=== PATIENT | female | born 1970 | race Caucasian/White ===

== ENCOUNTER 2017-01-22 19:35 | Emergency (ER) | payer OTHER ==
[~2017-01-22] VITALS: Ht 160 cm; Wt 117.9 kg
[~2017-01-22 19:35] MED LIST: CIPR500T4 PO; HYDR-3498 PO; HYDR-902 PO; IBUP-1542 PO; IBUP800T25 PO; LOPE2CAP PO; METR500T PO; NITR-58 PO; ONDA4TAB8 PO; PROM12.510 PO
[2017-01-22 20:07] VITALS: Ht 160 cm; Wt 117.9 kg
[2017-01-22] MEDS ORDERED: morphine 4 MG/ML VIAL IV STA (22:26)
[2017-01-22] MEDS ORDERED: SOD CHLORIDE 0.9% 1,000 ML IV STA (22:26)
[2017-01-22] MEDS ORDERED: ONDANSETRON 4 MG INJ IV STA (22:26)
--- NOTE | 2017-01-22 22:50 | ERD ---
ER Documentation Chief Complaint Date/Time DATE: 01/22/17 TIME: 22:31 Chief Complaint abd pain for 3 days n/v also HPI 46 year old morbidly obese patient is complaining of periumbilical pain radiating tingling to all over her abdomen and nausea and vomiting for 3 days. Patient has history of an umbilical hernia was recommended to have surgery for this. The last 3 days, the pain is more severe, throbbing pain, 9/10 scale, worse upon touching the area accompanied with nausea vomiting. She denies any diarrhea or constipation. Patient denies any fever or chills ROS All systems reviewed and are negative except as per history of present illness. Medications Home Meds Active Scripts Loperamide Hcl* (Imodium*) 2 Mg Capsule, 2 MG PO .AFTER EA LOOSE BM Y for DIARRHEA, #8 TAB Prov:ZIGGY KNOWLES PA-C 11/11/16 Ondansetron Hcl* (Zofran*) 4 Mg Tablet, 4 MG PO Q6H for NAUSEA AND/OR VOMITING, #30 TAB Prov:ZIGGY KNOWLES PA-C 11/11/16 Ibuprofen* (Motrin*) 800 Mg Tab, 800 MG PO Q6, #30 TAB Prov:ZIGGY KNOWLES PA-C 11/11/16 Hydrocodone/Acetaminophen ([place] 10-325 Tablet) 1 Each Tablet, 1 TAB PO Q6H Y for PAIN, #15 TAB Prov:ZIGGY KNOWLES PA-C 11/11/16 Ibuprofen* (Motrin*) 600 Mg Tab, 600 MG PO Q6H Y for PAIN AND OR ELEVATED TEMP, #30 Prov:BOBO PALOMO NP 07/01/15 Nitrofurantoin Monohyd Macrocr* (Macrobid*) 100 Mg Capsr, 100 MG PO BID for 7 Days, CAP Prov:BOBO PALOMO NP 07/01/15 Hydrocodone Bit-Acetaminophen* ([place]*) 5-325 Mg Tab, 1 TAB PO Q4H, #20 TAB Prov:JUDI FONSECA MD 01/28/15 Promethazine Hcl* (Phenergan*) 12.5 Mg Tablet, 12.5 MG PO Q6H Y for NAUSEA, #20 TAB Prov:JUDI FONSECA MD 01/28/15 Metronidazole* (Flagyl*) 500 Mg Tablet, 500 MG PO TID, #30 TAB Prov:JUDI FONSECA MD 01/28/15 Ciprofloxacin Hcl* (Ciprofloxacin Hcl*) 500 Mg Tablet, 500 MG PO BID, #20 TAB Prov:JUDI FONSECA MD 01/28/15 Allergies Allergies: Coded Allergies: No Known Drug Allergies (Verified Allergy, Mild, 01/26/15) PMhx/Soc Medical and Surgical Hx: pt denies Medical Hx, pt denies Surgical Hx History of Surgery: No Anesthesia Reaction: No Hx Neurological Disorder: No Hx Respiratory Disorders: No Hx Cardiac Disorders: No Hx Psychiatric Problems: No Hx Miscellaneous Medical Probl: No Hx Alcohol Use: No Hx Substance Use: No Hx Tobacco Use: No Smoking Status: Never smoker FmHx Family History: No coronary disease, No diabetes, No other Physical Exam Vitals Vital Signs Date Time Temp Pulse Resp B/P Pulse Ox O2 Delivery O2 Flow Rate FiO2 01/23/17 00:57 98.7 71 16 121/71 100 Room Air 01/22/17 20:07 98.8 92 24 133/76 98 Physical Exam GENERAL: The patient is well developed and appropriate for usual state of health, in no apparent distress. CHEST: Clear to auscultation bilaterally. There are no rales, wheezes or rhonchi. HEART: Regular rate and rhythm. No murmurs, clicks, rubs or gallops. No S3 or S4. ABDOMEN: Soft, tenderness all over the abdomen noted, tenderness in the periumbilical area, noted umbilical hernia noted.. Good bowel sounds. No rebound or guarding. No gross peritonitis. No gross organomegaly or masses. No Hammer sign or McBurney point tenderness. BACK: No midline or flank tenderness. EXTREMITIES: Equal pulses bilaterally. There is no peripheral clubbing, cyanosis or edema. No focal swelling or erythema. Full range of motion. Grossly neurovascularly intact. NEURO: Alert and oriented. Cranial nerves 2-12 intact. Motor strength in all 4 extremities with 5/5 strength. Sensation grossly intact. Normal speech and gait. SKIN: There is no apparent rash or petechia. The skin is warm and dry. HEMATOLOGIC AND LYMPHATIC: There is no evidence of excessive bruising or lymphedema. No gross cervical, axillary, or inguinal lymphadenopathy. Result Diagram: 01/22/17224601/22/172246 Results 24 hrs Laboratory Tests Test 01/22/17 22:47 01/22/17 23:07 Alanine Aminotransferase (ALT/SGPT) 23IU/L Albumin 4.2g/dl Albumin/Globulin Ratio 1.13 Alkaline Phosphatase 133IU/L Anion Gap 17 Aspartate Amino Transf (AST/SGOT) 19IU/L Basophils # 0.010^3/ul Basophils % 0.4% Beta HCG, Quantitative < 2.4mIU/ml Blood Urea Nitrogen 11mg/dl Calcium Level 9.3mg/dl Carbon Dioxide Level 29mmol/L Chloride Level 101mmol/L Creatinine 0.58mg/dl Direct Bilirubin 0.00mg/dl Eosinophils # 0.310^3/ul Eosinophils % 2.5% Globulin 3.70g/dl Glucose Level 116mg/dl Hematocrit 43.1% Hemoglobin 14.4g/dl Indirect Bilirubin 0.1mg/dl Lipase 101U/L Lymphocytes # 2.710^3/ul Lymphocytes % 21.8% Mean Corpuscular Hemoglobin 29.3pg Mean Corpuscular Hemoglobin Concent 33.5g/dl Mean Corpuscular Volume 87.5fl Mean Platelet Volume 8.7fl Monocytes # 0.910^3/ul Monocytes % 7.1% Neutrophils # 8.410^3/ul Neutrophils % 68.2% Nucleated Red Blood Cells # 0.010^3/ul Nucleated Red Blood Cells % 0.0/100WBC Platelet Count 45936^3/UL Potassium Level 3.6mmol/L Red Blood Count 4.9210^6/ul Red Cell Distribution Width 13.4% Sodium Level 143mmol/L Total Bilirubin 0.1mg/dl Total Protein 7.9g/dl White Blood Count 12.310^3/ul Urine Bilirubin NEGATIVE Urine Clarity CLEAR Urine Color LT. YELLOW Urine Glucose NEGATIVE% Urine Hemoglobin TRACE Urine Ketones NEGATIVE Urine Leukocyte Esterase NEGATIVE Urine Microscopic RBC 0-2/HPF Urine Microscopic WBC 5-10/HPF Urine Nitrite NEGATIVE Urine Specific [place] 1.020 Urine Squamous Epithelial Cells MANY Urine Total Protein NEGATIVE Urine Urobilinogen 0.2 E.U./dL Urine pH 6.0 Current Medications Medications (Trade) Dose Ordered Sig/Alem Route PRN Reason Start Time Stop Time Status Last Admin Dose Admin Sodium Chloride (NS) 1,000 ml @ 1,000 mls/hr Q1H STAT IV 01/22/17 22:26 01/22/17 23:25 DC 01/22/17 22:45 Morphine Sulfate (morphine) 6 mg ONCE STAT IV 01/22/17 22:26 01/22/17 22:28 DC 01/22/17 22:46 Ondansetron HCl (Zofran Inj) 4 mg ONCE STAT IV 01/22/17 22:26 01/22/17 22:28 DC 01/22/17 22:47 Patient was given medication for pain here in emergency department, after treatment, patient verbalized feeling much better. Patient's pain is improved.Patient was given Zofran here in the emergency department. After treatment, patient was able to tolerate po fluids here in the emergency department without any vomiting. There is no signs and symptoms of dehydration. PROCEDURE: XR Abdomen. CLINICAL INDICATION: Abdominal pain TECHNIQUE: AP abdomen x-ray. COMPARISON: None. FINDINGS: The bowel gas pattern is normal. There is no evidence of free air or obstruction. There are no abnormal calcifications overlying the urinary tracts. The osseus structures are unremarkable. ICD in place. IMPRESSION: 1. No free air or obstruction. RPTAT:AAJJ Avis Luther Physician Date Time Electronically viewed and signed by Physician Patrick on 01/23/2017 00:23 JAGDISH/ CC: MINNA TAVERAS NP CT abdomen and pelvis with IV contrast was done, was read by radiologist,Dr Carlos HERNANDES, Impression: #1. Appendix is visualized and is within normal limits. #2 large ventral hernia containing fat. #3 1.6 x 0.7 cm partially collapsed left ovarian cyst. #4. Intrauterine device in place. #5 Cholelithiasis. #6 prominent 11 mm diameter common bile duct, no obstructing stone or mass. #7 fatty liver. Procedures/MDM Medical Decision Making: Patient's abdominal pain nonspecific at this time, can be caused by the hernia, ovarian cyst noted, and also can be biliary colic. There is an dilated common bile duct but no obstructing stone or mass. Liver function tests are normal, lipase is normal. There is low suspicion for abdominal emergencies at this time. Patients abdominal exam is normal at this time. Patients radiology exam does not show any abdominal emergencies at this time. There is low suspicion for appendicitis, cholecystitis, abdominal aortic aneurysms or peritonitis at this time. There is low suspicion for sepsis. Patient appears well and is hemodynamically stable. Disposition: Home. Condition: Stable Prescription [place], Zofran, Colace Instructions: Patient is advised to take medications as prescribed. Patient is advised to rest, increase fluid intake and do brat diet for next 1-2 days and progress as tolerated. Patient is advised that if symptoms are worse, severe abdominal pain, uncontrolled vomiting, high fever, severe flank pain, worst signs and symptoms, to return to the emergency department immediately. Otherwise, patient can follow up with primary care doctor in 5-7 days. Departure Diagnosis: Primary Impression: Abdominal pain Abdominal location: generalized Qualified Code: R10.84 - Generalized abdominal pain Additional Impressions: Biliary colic Ventral hernia Obstruction and gangrene presence: without obstruction or gangrene Qualified Code: K43.9 - Ventral hernia without obstruction or gangrene Ovarian cyst Laterality: left Qualified Code: N83.202 - Cyst of left ovary Condition: Stable Patient Instructions: Abdominal Pain, Biliary Colic With Gallstone (Presumed), Hernia (Inguinal, Ventral, Umbilical), Ovarian Cyst Additional Instructions: Patient is advised to take medications as prescribed. Patient is advised to rest, increase fluid intake and do brat diet for next 1-2 days and progress as tolerated. Patient is advised that if symptoms are worse, severe abdominal pain , uncontrolled vomiting, high fever, severe flank pain, worst signs and symptoms , to return to the emergency department immediately. Otherwise, patient can follow up with primary care doctor in 5-7 days. MINNA TAVERAS NP Jan 22, 2017 22:50
[2017-01-22 23:15] LABS: BASOPHILS % 0.4 % (0.0-2.0); EOSINOPHILS # 0.3 10^3/ul (0.0-0.5); EOSINOPHILS % 2.5 % (0.0-7.0); HEMATOCRIT 43.1 % (37.0-47.0); HEMOGLOBIN 14.4 g/dl (12.0-16.0); LYMPHOCYTES # 2.7 10^3/ul (0.8-2.9); LYMPHOCYTES % 21.8 % (15.0-51.0); MEAN CORPUSCULAR HEMOGLOBIN 29.3 pg (29.0-33.0); MEAN CORPUSCULAR HGB CONC 33.5 g/dl (32.0-37.0); MEAN CORPUSCULAR VOLUME 87.5 fl (82.0-101.0); MEAN PLATELET VOLUME 8.7 fl (7.4-10.4); MONOCYTE # 0.9 10^3/ul (0.3-0.9); MONOCYTES % 7.1 % (0.0-11.0); NEUTROPHIL # 8.4 10^3/ul (1.6-7.5); NEUTROPHILS % 68.2 % (39.0-77.0); PLATELET COUNT 166 10^3/UL (140-440); RED BLOOD COUNT 4.92 10^6/ul (4.20-5.40); RED CELL DISTRIBUTION WIDTH 13.4 % (11.5-14.5); UNCORRECTED WBC 12.3 10^3/ul (4.8-10.8); WHITE BLOOD COUNT 12.3 10^3/ul (4.8-10.8)
[2017-01-22 23:16] LABS: CONDITION 1
[2017-01-22 23:20] LABS: ADD UMIC YES; URINE BILIRUBIN (Dip) NEGATIVE (NEGATIVE); URINE BLOOD (Dip) TRACE (NEGATIVE); URINE COLOR LT. YELLOW (YELLOW); URINE GLUCOSE (Dip) NEGATIVE (NEGATIVE); URINE KETONES (Dip) NEGATIVE (NEGATIVE); URINE LEUKOCYTE ESTERASE (Dip) NEGATIVE (NEGATIVE); URINE NITRITE (Dip) NEGATIVE (NEGATIVE); URINE TOTAL PROTEIN (Dip) NEGATIVE (NEGATIVE); URINE UROBILINOGEN (Dip) 0.2 E.U./dL (0.1-1.0)
[2017-01-22 23:25] LABS: ALBUMIN 4.2 g/dl (3.3-4.9)
[2017-01-22 23:26] LABS: POTASSIUM 3.6 mmol/L (3.5-5.1)
[2017-01-22 23:28] LABS: ALBUMIN/GLOBULIN RATIO 1.13; BILIRUBIN,INDIRECT 0.1 mg/dl (0-1.1); BILIRUBIN,TOTAL 0.1 mg/dl (0.2-1.3); CREATININE 0.58 mg/dl (0.44-1.00); TOTAL PROTEIN 7.9 g/dl (6.1-8.1)
[2017-01-22 23:29] LABS: CALCIUM 9.3 mg/dl (8.4-10.2)
[2017-01-22 23:30] LABS: SQUAMOUS EPITHELIAL CELL,UR MANY; URINE RBCS 0-2 /HPF (0)
--- NOTE | 2017-01-23 00:23 | RADRPT ---
PROCEDURE: XR Abdomen. CLINICAL INDICATION: Abdominal pain TECHNIQUE: AP abdomen x-ray. COMPARISON: None. FINDINGS: The bowel gas pattern is normal. There is no evidence of free air or obstruction. There are no abnor mal calcifications overlying the urinary tracts. The osseus structures are unremarkable. ICD in place. IMPRESSION: 1. No free air or obstruction. RPTAT:AAJJ Avis Luther Physician Date Time Electronically viewed and signed by Physician Patrick on 01/23/2017 00:23 JAGDISH/
[2017-01-23] MEDS ORDERED: HYDR-906 PO (04:12)
[2017-01-23] MEDS ORDERED: ONDA4TAB14 PO (04:12)
[2017-01-23] MEDS ORDERED: IBUP-1542 PO (04:12)
[2017-01-23 05:14] VITALS: BP 145/80; PULSE 75; RESP 20; TEMP 98.6
== END 2017-01-23 05:17 | disposition home or self-care (01) ==
LOC: FTE 19:35
DX: R10.84 Generalized abdominal pain (principal); R11.2 Nausea with vomiting, unspecified; K43.9 Ventral hernia without obstruction or gangrene; K80.50 Calculus of bile duct without cholangitis or cholecystitis without obstruction; N83.202 Unspecified ovarian cyst, left side; E66.01 Morbid (severe) obesity due to excess calories; Z68.42 Body mass index [BMI] 45.0-49.9, adult
CPT/HCPCS: 36415; 74010; 80053; 81001; 83690; 84702; 85025; 96374; 96375; J2270; J2405; J7030; Z7502; 81003

== ENCOUNTER 2019-01-31 18:43 | Emergency (ER) | payer MEDICAID, OTHER ==
[~2019-01-31] VITALS: Ht 162.6 cm; Wt 115.0 kg
[~2019-01-31 18:43] MED LIST changes: +HYDR-3980 PO; +HYDR-4011 PO; -HYDR-902 PO; -IBUP800T25 PO; +IBUP800T48 PO; +ONDA4TAB14 PO
[2019-01-31 18:52] VITALS: Ht 162.6 cm; Wt 115.0 kg
--- NOTE | 2019-01-31 23:53 | ERD ---
ER Documentation Chief Complaint Chief Complaint PT reports AP and unable to empty bladder x 3 weeks HPI This is a 48-year-old female with a past medical history of previous cholecystectomy, previous hernia repair, chronic abdominal pain who is presenting with approximately 3 weeks of general abdominal discomfort, worse in the suprapubic region with a waxing and waning moderate aching cramping sensation. The patient reports that it sometimes feels like she is having contractions. The patient also endorses dysuria with significant urinary frequency and urgency. She reports that she is occasionally incontinent of urine as well. The patient endorses no nausea or vomiting. The patient does not endorse any diarrhea. She does report that she does have issues with constipation and frequently strains to go to the bathroom. The patient denies feeling sick recently. The patient denies fever or chills. The patient has had no headache or vision changes. The patient does not endorse neck or back pain. The patient denies lightheadedness or dizziness. The patient has had no chest pain or trouble breathing. The patient has had no focal deficits. The patient has had no weakness or numbness or tingling to the face or extremities. ROS All systems reviewed and are negative except as per history of present illness. Medications Home Meds Active Scripts Polyethylene Glycol* (Miralax*) 17 Gm Powd.pack, 17 GM PO DAILY, #7 Prov:KARL WU MD 01/31/19 Cephalexin* (Keflex*) 500 Mg Capsule, 500 MG PO BID for 10 Days, CAP Prov:KARL WU MD 01/31/19 Ondansetron (Ondansetron Odt) 4 Mg Tab.rapdis, 4 MG PO Q8 PRN for NAUSEA AND/OR VOMITING, #10 TAB Prov:MINNA TAVERAS NP 01/23/17 Hydrocodone/Acetaminophen ([place] 5-325 Tablet) 1 Each Tablet, 1 TAB PO Q6H PRN for PAIN, #20 TAB Prov:MINNA TAVERAS NP 01/23/17 Ibuprofen* (Motrin*) 600 Mg Tab, 600 MG PO Q6H PRN for PAIN AND OR ELEVATED TEMP, #30 TAB Prov:MINNA TAVERAS NP 01/23/17 Loperamide Hcl* (Imodium*) 2 Mg Capsule, 2 MG PO .AFTER EA LOOSE BM PRN for DIARRHEA, #8 TAB Prov:ZIGGY KNOWLES PA-C 11/11/16 Ondansetron Hcl* (Zofran*) 4 Mg Tablet, 4 MG PO Q6H for NAUSEA AND/OR VOMITING, #30 TAB Prov:ZIGGY KNOWLESC 11/11/16 Ibuprofen* (Motrin*) 800 Mg Tab, 800 MG PO Q6, #30 TAB Prov:ZIGGY KNOWLESC 11/11/16 Hydrocodone/Acetaminophen ([place] 10-325 Tablet) 1 Each Tablet, 1 TAB PO Q6H PRN for PAIN, #15 TAB Prov:ZIGGY KNOWLES PA-C 11/11/16 Ibuprofen* (Motrin*) 600 Mg Tab, 600 MG PO Q6H PRN for PAIN AND OR ELEVATED TEMP, #30 Prov:BOBO PALOMO [employer] TECHNICIAN 07/01/15 Nitrofurantoin Monohyd Macrocr* (Macrobid*) 100 Mg Capsr, 100 MG PO BID for 7 Days, CAP Prov:BOBO PALOMO [employer] ENGINE TECHNICIAN 07/01/15 Hydrocodone Bit-Acetaminophen* ([place]*) 5-325 Mg Tab, 1 TAB PO Q4H, #20 TAB Prov:JUDI FONSECA MD 01/28/15 Promethazine Hcl* (Phenergan*) 12.5 Mg Tablet, 12.5 MG PO Q6H PRN for NAUSEA, #20 TAB Prov:JUDI FONSECA MD 01/28/15 Metronidazole* (Flagyl*) 500 Mg Tablet, 500 MG PO TID, #30 TAB Prov:JUDI FONSECA MD 01/28/15 Ciprofloxacin Hcl* (Ciprofloxacin Hcl*) 500 Mg Tablet, 500 MG PO BID, #20 TAB Prov:JUDI FONSECA MD 01/28/15 Allergies Allergies: Coded Allergies: No Known Drug Allergies (Verified Allergy, Mild, 01/26/15) PMhx/Soc History of Surgery: Yes (cholecystectomy, hernia repair 2018) Anesthesia Reaction: No Hx Neurological Disorder: No Hx Respiratory Disorders: No Hx Cardiac Disorders: No Hx Psychiatric Problems: No Hx Miscellaneous Medical Probl: No Hx Alcohol Use: No Hx Substance Use: No Hx Tobacco Use: No Smoking Status: Never smoker FmHx Family History: No diabetes Physical Exam Vitals Vital Signs Date Temp Pulse Resp B/P (MAP) Pulse Ox O2 O2 Flow FiO2 Time Delivery Rate 02/01/19 78 16 115/82 99 Room Air 00:30 (93) 01/31/19 98.4 105 20 146/70 100 18:52 (95) Physical Exam Const: No apparent distress, well-developed, well-nourished Head: Normocephalic, Atraumatic Eyes: Normal Conjunctiva. Extraocular movements intact. Pupils equal, round and reactive to light ENT: Normal External Ears, Nose and Mouth. Neck: Full range of motion. No meningismus. Resp: Clear to auscultation bilaterally, No wheezes, rales or rhonchi Cardio: Regular rate and rhythm. No murmurs, rubs or gallops Abd: Morbid obesity. Soft, non distended. Suprapubic tenderness. Normal bowel sounds Skin: No petechiae or rashes Back: No midline tenderness. No CVA tenderness Ext: No cyanosis, or edema Neur: Awake and alert, oriented 4. Cranial nerves intact. No facial droop. Normal strength, sensation and coordination. Psych: Normal Mood and Affect Result Diagram: 01/31/19213201/31/192132 Results 24 hrs Laboratory Tests Test 01/31/19 21:32 01/31/19 21:33 Urine Color YELLOW Urine Clarity SLIGHTLY CLOUDY Urine pH 6.0 Urine Specific [place] 1.013 Urine Ketones NEGATIVE mg/dL Urine Nitrite NEGATIVE mg/dL Urine Bilirubin NEGATIVE mg/dL Urine Urobilinogen 1+ mg/dL Urine Leukocyte Esterase TRACE [place]/ul Urine Microscopic RBC 3 /HPF Urine Microscopic WBC 3 /HPF Urine Squamous Epithelial Cells FEW /HPF Urine Bacteria FEW /HPF Urine Mucus FEW /HPF Urine Hemoglobin 2+ mg/dL Urine Glucose NEGATIVE mg/dL Urine Total Protein 2+ mg/dl White Blood Count 13.3 10^3/ul Red Blood Count 5.24 10^6/ul Hemoglobin 14.9 g/dl Hematocrit 45.6 % Mean Corpuscular Volume 87.0 fl Mean Corpuscular Hemoglobin 28.4 pg Mean Corpuscular Hemoglobin Concent 32.7 g/dl Red Cell Distribution Width 12.5 % Platelet Count 170 10^3/UL Mean Platelet Volume 10.6 fl Immature Granulocytes % 0.800 % Neutrophils % 78.0 % Lymphocytes % 11.6 % Monocytes % 8.2 % Eosinophils % 1.0 % Basophils % 0.4 % Nucleated Red Blood Cells % 0.0 /100WBC Immature Granulocytes # 0.110 10^3/ul Neutrophils # 10.4 10^3/ul Lymphocytes # 1.5 10^3/ul Monocytes # 1.1 10^3/ul Eosinophils # 0.1 10^3/ul Basophils # 0.1 10^3/ul Nucleated Red Blood Cells # 0.0 10^3/ul Sodium Level 140 mmol/L Potassium Level 3.5 mmol/L Chloride Level 100 mmol/L Carbon Dioxide Level 28 mmol/L Anion Gap 12 Blood Urea Nitrogen 9 mg/dl Creatinine 0.60 mg/dl Est Glomerular Filtrat Rate mL/min > 60 mL/min Glucose Level 143 mg/dl Calcium Level 9.9 mg/dl Total Bilirubin 0.3 mg/dl Direct Bilirubin 0.00 mg/dl Indirect Bilirubin 0.3 mg/dl Aspartate Amino Transf (AST/SGOT) 21 IU/L Alanine Aminotransferase (ALT/SGPT) < 6 IU/L Alkaline Phosphatase 135 IU/L Total Protein 9.1 g/dl Albumin 4.5 g/dl Globulin 4.60 g/dl Albumin/Globulin Ratio 0.97 Procedures/MDM MDM The patient's presentation warrants further investigation. Previous medical records, if available, were reviewed. LABS The patient's laboratory testing was obtained and reviewed. No emergent treatment was required unless described below. CBC: Mild leukocytosis, potentially related to an infection, but also potentially reactive. No clinical E/o systemic infection. No anemia or thrombocytopenia. Chemistry: No E/o severe acidosis or alkalosis or renal failure or liver disease or diabetic ketoacidosis Lipase: No E/o pancreatitis Urine: Equivocal for acute infection without hematuria TREATMENT/DISPOSITION The patient presents with symptoms concerning for urinary tract infection. The patient's urinalysis is equivocal for urinary tract infection, but given her symptoms, I do intend to treat. The patient also reports issues with constipation. She may benefit from MiraLAX in an outpatient setting. The patient does have a leukocytosis, but I have very low suspicion for sepsis and I do not feel the patient requires a full septic workup. The patient does not have any evidence of peritonitis. The patient does not have clinical symptoms concerning for mesenteric ischemia or ischemic colitis. The patient does not have right upper quadrant tenderness, and I have low suspicion for gallstones, cholecystitis or biliary colic. The patient does not have any epigastric pain. I have low suspicion for gastritis, PUD or GERD. The patient do es not have left upper quadrant tenderness. I have low suspicion for pancreatitis. The patient does not have any right lower quadrant tenderness, or periumbilical tenderness. I have low suspicion for appendicitis. The patient does not have any left lower quadrant tenderness, and I have low suspicion for diverticulosis or diverticulitis. he patient does not have any flank tenderness. The patient does not have gross hematuria. I have decreased suspicion for nephrolithiasis or renal colic. The patient does not have any palpable pulsatile mass or severe abdominal pain radiating to the back. I have low suspicion for aortic aneurysm, dissection or rupture. No emergent diagnoses were identified. At this time, I feel that the patient stable for discharge. The patient was instructed to follow-up with a primary care physician in 1-3 days. The patient will be given strict precautions with which to return to the emergency department. Prescriptions: Keflex, MiraLAX The patient's blood pressure was elevated at greater than 120/80 while in the emergency department. The patient was otherwise stable with no evidence of hypertensive urgency or emergency. The patient does not require admission for blood pressure control. I have discussed with the patient the risks of hypertension. I have instructed the patient to return to the ER for any new or worsening symptoms including chest pain, shortness of breath, headache, blurred vision, confusion, nausea, vomiting or LOC. I have advised the patient to follow up with the primary care physician for outpatient monitoring and treatment for h ypertension in 1-3 days. Disclaimer: Inadvertent spelling and grammatical errors are likely due to EHR/dictation software use and do not reflect on the overall quality of patient care. Note that the electronic time recorded on this note does not necessarily reflect the actual time of the patient encounter. Departure Diagnosis: Primary Impression: UTI (urinary tract infection) Urinary tract infection type: acute cystitis Hematuria presence: without hematuria Qualified Codes: N30.00 - Acute cystitis without hematuria Additional Impressions: Abdominal pain Abdominal location: lower abdomen, unspecified Qualified Codes: R10.30 - Lower abdominal pain, unspecified Constipation Constipation type: unspecified constipation type Qualified Codes: K59.00 - Constipation, unspecified Leukocytosis Leukocytosis type: unspecified Qualified Codes: D72.829 - Elevated white blood cell count, unspecified Condition: Stable KARL WU MD Jan 31, 2019 23:53
[2019-01-31] MEDS ORDERED: CEPH-443 PO (23:54)
[2019-01-31] MEDS ORDERED: POLY17PO6 PO (23:54)
[2019-02-01 00:30] VITALS: BP 115/82; PULSE 78; RESP 16
== END 2019-02-01 00:32 | disposition home or self-care (01) ==
LOC: E/R 18:43
DX: N30.00 Acute cystitis without hematuria (principal); K59.00 Constipation, unspecified; D72.829 Elevated white blood cell count, unspecified
CPT/HCPCS: 80053; 81001; 85025; Z7502; 99283